=== PATIENT | male | born 1960 | race Caucasian/White ===

== ENCOUNTER 2020-12-05 12:28 | Emergency (ER) | payer OTHER ==
[2020-12-05 12:41] VITALS: BP 115/66; PULSE 72; TEMP 98; BMI 35.1
== END 2020-12-05 14:57 | disposition home or self-care (01) ==
LOC: JER 12:28
DX: T88.7XXA Unspecified adverse effect of drug or medicament, initial encounter (principal)
CPT/HCPCS: 82962; 93005; 93010; 99284-25